=== PATIENT | male | born 1980 | race Caucasian/White ===

== ENCOUNTER 2020-12-13 11:16 | Emergency (ER) | payer OTHER, MEDICAID ==
[2020-12-13 11:48] VITALS: BP 153/93; PULSE 73
[2020-12-13] MEDS ORDERED: Ketorolac 60 MG/2 ML SDV IM ONE (11:57)
--- NOTE | 2020-12-13 11:57 | EDM.PDOC ---
ED HPI GENERAL MEDICAL PROBLEM - General Chief Complaint: General Stated Complaint: SMASHED LEFT MIDDLE FINGER Time Seen by Provider: 12/13/20 11:40 Source of Information: Reports: Patient History Limitations: Reports: No Limitations - History of Present Illness INITIAL COMMENTS - FREE TEXT/NARRATIVE: presented to the ER with a c/o left finger injury. 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 Occurred 30 min ago. reports throbbing pain on the tip of the fingers. mild bleeding that is controlled with pressure Onset: Sudden Duration: Minutes: (30) Location: Reports: Upper Extremity, Left Severity: Mild Worsens with: Reports: None Left Middle Finger-Middle Pain Score (Numeric/FACES): 8 - Related Data Allergies Allergy/AdvReac Type Severity Reaction Status Date / Time No Known Allergies Allergy Verified 12/13/20 11:48 Home Meds: Home Meds Amoxicillin 500 mg PO BID #10 capsule 12/13/20 [Rx] Ketorolac [Toradol] 10 mg PO Q6H PRN #10 tab 12/13/20 [Rx] Past Medical History - Past Health History Medical/Surgical History: Denies Medical/Surgical History Review of Systems - Review of Systems Review Of Systems: See Below Constitutional: Reports: No Symptoms Eyes: Reports: No Symptoms Respiratory: Reports: No Symptoms Cardiovascular: Reports: No Symptoms Neurological: Reports: No Symptoms ED EXAM, GENERAL - Physical Exam Exam: See Below Exam Limited By: No Limitations General Appearance: Alert, No Apparent Distress Eye Exam: Bilateral Eye: EOMI Respiratory/Chest: No Respiratory Distress Cardiovascular: Regular Rate, Rhythm Extremities: Other (pain to left middle and ring finger - mild limited ROM due to pain ) Neurological: Alert, Oriented Course - Vital Signs Last Recorded V/S: Last Vital Signs Temp 37.1 C 12/13/20 11:43 Pulse 73 12/13/20 11:43 Resp 18 12/13/20 11:43 BP 153/93 H 12/13/20 11:43 Pulse Ox 100 12/13/20 11:43 - Orders/Labs/Meds Orders: Active Orders 24 hr Category Date Time Status Hand Comp Min 3V Lt [CR] Stat Exams 12/13/20 11:53 Taken Meds: Medications Discontinued Medications Generic Name Dose Route Start Last Admin Trade Name Freq PRN Reason Stop Dose Admin Ketorolac Tromethamine 60 mg 12/13/20 11:57 12/13/20 11:55 Ketorolac 60 Mg/2 Ml Sdv IM 12/13/20 11:58 60 mg ONETIME ONE Administration Ketorolac Tromethamine Confirm 12/13/20 12:05 12/13/20 12:04 Ketorolac 60 Mg/2 Ml Sdv Administered 12/13/20 12:06 Not Given Dose 60 mg .ROUTE .STK-MED ONE - Re-Assessments/Exams Free Text/Narrative Re-Assessment/Exam: finger xrays were administered - showed small fracture of the tip of the middle finger - tip of the distal phalanx, with a possible fracture of the tip of the distal phalanx of the ring finger IM Toradol for pain control - well controlled wound cleaning antibiotics ointment and sterile dressing tetanus up to date Departure - Departure Time of Disposition: 12:41 Disposition: Home, Self-Care 01 Condition: Good Clinical Impression: Finger fracture, left Qualifiers: Encounter type: initial encounter Finger: middle finger Fracture type: closed Phalanx: distal Fracture alignment: nondisplaced Qualified Code(s): S62.663A - Nondisplaced fracture of distal phalanx of left middle finger, initial encounter for closed fracture Finger injury Qualifiers: Encounter type: initial encounter Laterality: left Qualified Code(s): S69.92XA - Unspecified injury of left wrist, hand and finger(s), initial encounter - Discharge Information *PRESCRIPTION DRUG MONITORING PROGRAM REVIEWED*: Not Applicable *COPY OF PRESCRIPTION DRUG MONITORING REPORT IN PATIENT VIKRAM: Not Applicable Prescriptions: Amoxicillin 500 mg PO BID #10 capsule Ketorolac [Toradol] 10 mg PO Q6H PRN #10 tab PRN Reason: Pain (Moderate 4-6) Instructions: Finger Fracture, Adult, [id number], Finger Fracture, Adult Referrals: PCP,None [Primary Care Provider] - Forms: ED Department Discharge Additional Instructions: - take antibiotics and pain meds as prescribed - apply antibiotics ointment on the wound once daily - keep wound dry and clean Sepsis Event Note (ED) - Evaluation Sepsis Screening Result: No Definite Risk - Focused Exam Vital Signs: Vital Signs Temp Pulse Resp BP Pulse Ox 12/13/20 11:43 37.1 C 73 18 153/93 H 100 - Problem List & Annotations (1) Finger fracture, left SNOMED Code(s): 99228318, 16585609032595209 Code(s): S62.609A - FRACTURE OF UNSP PHALANX OF UNSP FINGER, INIT FOR CLOS FX Status: Acute Priority: Low Current Visit: Yes Qualifiers: Encounter type: initial encounter Finger: middle finger Fracture type: closed Phalanx: distal Fracture alignment: nondisplaced Qualified Code(s): S62.663A - Nondisplaced fracture of distal phalanx of left middle finger, initial encounter for closed fracture (2) Finger injury SNOMED Code(s): 17390635 Code(s): S69.90XA - UNSP INJURY OF UNSP WRIST, HAND AND FINGER(S), INIT ENCNTR Status: Acute Priority: Low Current Visit: Yes Qualifiers: Encounter type: initial encounter Laterality: left Qualified Code(s): S69.92XA - Unspecified injury of left wrist, hand and finger(s), initial encounter - Problem List Review Problem List Initiated/Reviewed/Updated: Yes - My Orders Last 24 Hours: My Active Orders 12/13/20 11:53 Hand Comp Min 3V Lt [CR] Stat - Assessment/Plan Last 24 Hours: My Active Orders 12/13/20 11:53 Hand Comp Min 3V Lt [CR] Stat Plan: - take antibiotics and pain meds as prescribed - apply antibiotics ointment on the wound once daily - keep wound dry and clean
[2020-12-13] MEDS ORDERED: Ketorolac 60 MG/2 ML SDV ONE (12:05)
--- NOTE | 2020-12-13 15:00 | CR ---
Date of Service: 12/13/20 Clinical Data: crushed finger LEFT HAND: There is a comminuted fracture through the tuft of the distal phalanx of the third digit with ventral displacement and angulation of the distal fragments with respect to the proximal. There is also a comminuted fracture through the tuft of the distal phalanx of the fourth digit. No other acute abnormalities. [id number] [facility]
== END 2020-12-13 12:50 | disposition home or self-care (01) ==
LOC: LB.ED 11:16
DX: S62.663A Nondisplaced fracture of distal phalanx of left middle finger, initial encounter for closed fracture (principal); W23.0XXA Caught, crushed, jammed, or pinched between moving objects, initial encounter
CPT/HCPCS: 73130-LT; 96372; 99283-25; J1885

== ENCOUNTER 2021-05-16 09:20 | Emergency (ER) | payer MEDICAID ==
[2021-05-16 10:19] VITALS: PULSE 74
[2021-05-16] MEDS ORDERED: Benzonatate 100 MG Cap ONE (12:00)
--- NOTE | 2021-05-16 12:53 | EDM.PDOC ---
ED HPI GENERAL MEDICAL PROBLEM - General Chief Complaint: Respiratory Problem Stated Complaint: COVID symptoms Time Seen by Provider: 05/16/21 09:20 Source of Information: Reports: Patient History Limitations: Reports: No Limitations - History of Present Illness INITIAL COMMENTS - FREE TEXT/NARRATIVE: 40-year-old male presents the ED complaining of upper respiratory complaints to include congestion, cough, teary eyes. Patient had onset on Thursday that gradually got worse, describes it started in his nose and then progressively worked down into his lungs. Laying down makes the congestion in his nose worse depending on which side he is on. Patient finds some palliative relief with cough drops. He describes his cough as a course wet cough with that is productive with white mucus. This is accompanied by a headache. Patient did feel some pressure on Thursday when he had diarrhea x2. Patient denies chest pain, shortness of breath, difficulty swallowing, blurred vision, trauma, constipation, changes in urinary frequency color volume, no swollen painful joints, no rash - Related Data Allergies Allergy/AdvReac Type Severity Reaction Status Date / Time No Known Allergies Allergy Verified 05/16/21 11:10 Home Meds: Home Meds Amoxicillin 500 mg PO BID #10 capsule 12/13/20 [Rx] Ketorolac [Toradol] 10 mg PO Q6H PRN #10 tab 12/13/20 [Rx] Past Medical History - Past Health History Medical/Surgical History: Denies Medical/Surgical History Musculoskeletal History: Reports: Other (See Below) Other Musculoskeletal History: jaw broken years ago, miniscus knee repair Psychiatric History: Reports: ADHD - Past Surgical History GI Surgical History: Reports: Appendectomy Musculoskeletal Surgical History: Reports: Arthroscopic Knee Social & Family History - Family History Family Medical History: No Pertinent Family History - Tobacco Use Tobacco Use Status *Q: Current Every Day Tobacco User Years of Tobacco use: 20 Packs/Tins Daily: 0.5 - Caffeine Use Caffeine Use: Reports: Coffee, Soda - Recreational Drug Use Recreational Drug Use: Yes Recreational Drug Type: Reports: Marijuana/Hashish Recreational Drug Use Frequency: Socially ED ROS GENERAL - Review of Systems Review Of Systems: Comprehensive ROS is negative, except as noted in HPI. ED EXAM, GENERAL - Physical Exam Exam: See Below Free Text/Narrative:: 40-year-old male presents to the ED complaining of upper respiratory complaints. Patient alert and oriented 3/3 GCS 4 5 6, ABCs are intact no apparent distress speaking in full sentences no obvious trauma Exam Limited By: No Limitations General Appearance: Alert, WD/WN, No Apparent Distress Eye Exam: Bilateral Eye: Conjunctival Injection (Negative for), EOMI, PERRL Ears: Normal External Exam, Normal Canal, Hearing Grossly Normal, Normal TMs Ear Exam: Bilateral Ear: TM normal Nose: Normal Inspection, Normal Mucosa, No Blood Throat/Mouth: Normal Lips, Normal Teeth, Normal Gums, Normal Voice, No Airway Compromise, Other (Bilateral tonsil stones, mild erythema to the hypopharynx and tonsils and uvula, evidence of postnasal drip) Head: Atraumatic, Normocephalic Neck: Normal Inspection, Supple, Non-Tender, Full Range of Motion Respiratory/Chest: No Respiratory Distress, Lungs Clear, Normal Breath Sounds, No Accessory Muscle Use, Chest Non-Tender Cardiovascular: Normal Peripheral Pulses, Regular Rate, Rhythm, No Edema, No Gallop, No JVD, No Murmur, No Rub GI/Abdominal: Normal Bowel Sounds, Soft, Non-Tender, No Organomegaly, No Distention, No Mass Back Exam: Normal Inspection, Full Range of Motion, NT Extremities: Normal Inspection, Normal Range of Motion, Non-Tender, Normal Capillary Refill, No Pedal Edema Neurological: Alert, Oriented, Normal Cognition Psychiatric: Normal Affect, Normal Mood Skin Exam: Warm, Dry, Intact, Normal Color, No Rash Lymphatic: No Adenopathy Course - Vital Signs Last Recorded V/S: Last Vital Signs Temp 96.8 F L 05/16/21 09:20 Pulse 74 05/16/21 09:20 Resp 20 05/16/21 09:20 BP Pulse Ox 99 05/16/21 09:20 - Orders/Labs/Meds Orders: Active Orders 24 hr Category Date Time Status CORONAVIRUS COVID-19 RAPID [MOLEC] Stat Lab 05/16/21 09:42 Ordered STREP A POC [POC] Stat Lab 05/16/21 12:00 Ordered Labs: Laboratory Tests 05/16/21 Range/Units 10:00 SARS-CoV-2 RNA (AL[facility]) Negative (NEGATIVE) Departure - Departure Time of Disposition: 12:10 Disposition: Home, Self-Care 01 Condition: Good Clinical Impression: Upper respiratory infection Qualifiers: URI type: unspecified viral URI Qualified Code(s): J06.9 - Acute upper respiratory infection, unspecified - Discharge Information *PRESCRIPTION DRUG MONITORING PROGRAM REVIEWED*: No *COPY OF PRESCRIPTION DRUG MONITORING REPORT IN PATIENT VIKRAM: No Instructions: Upper Respiratory Infection, Adult, [id number] Referrals: PCP,None [Primary Care Provider] - Forms: ED Department Discharge Additional Instructions: Discharge home. Prescription strength decongestant, go to the pharmacy and ask for Sudafed. Tylenol and Ibuprofen for body aches and sore throat. Benzonatate 100mg 1 capsule every 8 hours. Use cough drops and a humidifier if you have one. Sepsis Event Note (ED) - Evaluation Sepsis Screening Result: No Definite Risk - Focused Exam Vital Signs: Vital Signs Temp Pulse Resp Pulse Ox 05/16/21 09:20 96.8 F L 74 20 99 - My Orders Last 24 Hours: My Active Orders 05/16/21 09:42 CORONAVIRUS COVID-19 RAPID [MOLEC] Stat 05/16/21 12:00 STREP A POC [POC] Stat - Assessment/Plan Last 24 Hours: My Active Orders 05/16/21 09:42 CORONAVIRUS COVID-19 RAPID [MOLEC] Stat 05/16/21 12:00 STREP A POC [POC] Stat Assessment:: 40-year-old male who presents for evaluation of cough, nasal congestion. Is consistent with an upper respiratory infection. There is no signs or symptoms of point other serious bacterial infection such as otitis media, retropharyngeal abscess, epiglottitis, peritonsillar abscess, strep pharyngitis, pneumonia, sinusitis, meningitis, bacteremia. Given clear lungs, no fever, no hypoxia and no respiratory distress likely not feel the patient needs a chest x-ray at this point as the probability of bacterial pneumonia is very unlikely. There is no to concerning gastrointestinal symptoms at this point and no signs of dehydration. Close follow-up with primary care provider is indicated. Return to the ED for fevers greater than 103, protracted vomiting, or confusion. Plan: ABC, history, exam, lab with negative Covid, symptomatic treatment, patient sent home with a prescription for Tessalon Perles. Upper respiratory infection with coughremain hydrated, Tylenol and/or Advil for fever and/or discomfort, humidifier, cough drops as needed, Tessalon Perles 1 every 8 hours. Follow-up with primary care provider
== END 2021-05-16 12:10 | disposition home or self-care (01) ==
LOC: LB.ED 09:20
DX: J06.9 Acute upper respiratory infection, unspecified (principal); Z72.0 Tobacco use; Z20.822 Contact with and (suspected) exposure to COVID-19
CPT/HCPCS: 99283; A9270-GY; U0002

== ENCOUNTER 2022-08-16 05:15 | Emergency (ER) | payer MEDICAID ==
[2022-08-16] MEDS ORDERED: HYDROmorphone 2 MG/ML Syringe IVPUSH ONE ×2 (05:33→05:40)
[2022-08-16 05:45] VITALS: BP 112/73; PULSE 87
[2022-08-16] MEDS ORDERED: cefTRIAXone 2 GM in Sodium Chloride 0.9% 100 ML IV ONE (06:10)
[2022-08-16] MEDS ORDERED: Ketorolac 30 MG/ML SDV IVPUSH ONE (07:43)
[2022-08-16] MEDS ORDERED: Acetaminophen/HYDROcodone 325-5 MG Tab ONE (08:00)
[2022-08-16] MEDS ORDERED: Ibuprofen 800 MG Tab ONE (08:00)
[2022-08-16] MEDS ORDERED: Ciprofloxacin 500 MG Tab ONE (08:00)
== END 2022-08-16 08:10 | disposition home or self-care (01) ==
LOC: LB.ED 05:15
DX: N39.0 Urinary tract infection, site not specified (principal); N41.9 Inflammatory disease of prostate, unspecified; Z72.0 Tobacco use; Z90.49 Acquired absence of other specified parts of digestive tract
CPT/HCPCS: 36415; 74176; 80053; 81001; 85025; 87086; 96365; 96375; 99284; A9270; J0696; J1170; J1885; J3490